=== PATIENT | female | born 1930 | race Caucasian/White ===

== ENCOUNTER 2017-01-05 18:17 | Emergency (ER) | payer OTHER ==
[~2017-01-05] VITALS: Ht 172.7 cm; Wt 61.0 kg
[~2017-01-05 18:17] MED LIST: CEFD1CAP14 PO; GFNSR600 PO; PRENTAB26 PO; TRAZ150T64 PO
[2017-01-05 18:25] VITALS: TEMP 36.5; Ht 172.7 cm; Wt 61.0 kg
[2017-01-05] MEDS ORDERED: DSY/150 PO (19:25)
[2017-01-05] MEDS ORDERED: PRENTAB26 PO (19:25)
[2017-01-05] MEDS ORDERED: OPTIRAY 320 IV PRN (19:30)
[2017-01-05] MEDS ORDERED: ZYP25 PO (20:06)
[2017-01-05] MEDS ORDERED: CHOL100027 PO (20:06)
[2017-01-05] MEDS ORDERED: MIRT30TA3 PO (20:06)
--- NOTE | 2017-01-05 20:09 | DIAGNOSTIC IMAGING REPORT ---
CT OF THE CHEST WITH IV CONTRAST CLINICAL HISTORY: Shortness of breath. Evaluate for mass. Abnormal chest radiograph at PCP. COMPARISON STUDY: Chest radiograph October 23, 2016. TECHNIQUE: Following IV administration of 91 mL of Optiray-320, helical axial images of the chest were obtained. Images were viewed in the axial, sagittal and coronal planes. IV contrast was administered without complication. CT DOSE: 300.15 mGy.cm FINDINGS: There is mild dilatation of the ascending aorta which measures 3.8 cm. There is no evidence for dissection. No enlarged thoracic lymph nodes are present. There is moderate plaque of the aortic arch. Moderate to severe emphysema is noted. No consolidation is identified to suggest pneumonia. Left lower lobe opacity represents atelectasis. There is a large lateral hernia with intrathoracic stomach. The stomach is mildly distended and fluid-filled. No pneumothorax or pleural effusion is present. Cholecystectomy clips are noted. No pulmonary emboli are identified although the segmental and subsegmental pulmonary arteries are suboptimally assessed on this exam. IMPRESSION: 1. No acute findings within the chest. 2. Large hiatal hernia with intrathoracic stomach. The stomach is mildly dilated and fluid-filled. The findings are not highly concerning but correlation with obstructive symptoms is recommended. No gastric wall thickening. 3. Moderate to severe emphysema. No consolidation to suggest pneumonia. Left lower lobe atelectasis. 4. Mild dilatation of the thoracic aorta. No dissection. Electronically signed by: Sharan Carlisle M.D. 01/05/2017 8:07 PM Dictated Date/Time: 01/05/2017 7:53 PM
[2017-01-05 20:41] VITALS: BP 145/70; PULSE 109; O2SAT 92
--- NOTE | 2017-01-06 00:44 | EMERGENCY ROOM VISIT NOTE ---
History Report prepared by Yasmin: Jewell Rodriguez Under the Supervision of: Dr. Andrew Vázquez M.D. First contact with patient: 18:47 Chief Complaint: SHORTNESS OF BREATH Stated Complaint: HX OF SHORTNESS OF BREATH - WANTS CT SCAN Nursing Triage Summary: Pt presents ambulatory to triage with daughter. Daughter reports pt had PCP appt today, mentioned that pt had trouble breathing a couple weeks ago when she had cold sx. Did an x-ray. Pt sent here for CT for ? fluid. Pt denies sob at present. Pt states, "I feel fine." History of Present Illness The patient is an 86 year old female who presents to the Emergency Room with complaints of abnormal x-ray findings that were done today. Per the patient's daughter, the patient had a regular check-up today with her PCP. She states that while there, she brought up how the patient recently had a cough, cold, and shortness of breath several weeks ago. The patient's daughter notes that the patient's recent illness prompted the patient's PCP to order an x-ray. She states that the patient's PCP noticed abnormalities and wanted the patient to have a CT scan. The patient's daughter states that the patient was instructed to come to the emergency department for a CT scan and for further evaluation. The patient denies any current shortness of breath, cough, fever, chest pain, vomiting, diarrhea, or leg swelling. The patient's daughter notes that the patient's blood pressure and heart rate both increased after interacting with her PCP. Source of History: patient, family (daughter) Onset: today Position: other (global) Quality: other (abnormal x-ray findings) Associated Symptoms: No SOB, No abdominal pain, No chest pain, No cough, No diarrhea, No fevers, No vomiting Review of Systems See HPI for pertinent positives & negatives. A total of 10 systems reviewed and were otherwise negative. Past Medical & Surgical Medical Problems: (1) No pertinent past medical history (2) SOB (shortness of breath) Surgical Problems: (1) Hx of cholecystectomy Family History FH: hypertension Heart disease Social History Smoking Status: Former Smoker Alcohol Use: none Marital Status: Housing Status: lives alone Occupation Status: retired Current/Historical Medications Scheduled Cholecalciferol (Vitamin D 1000 Unit), 1,000 INTER.UNIT PO DAILY Mirtazapine (Remeron), 30 MG PO HS Multivit/Min/Iron/Fol Ac/Pren ( Vitamin), 1 TAB PO DAILY Olanzapine (Olanzapine), 2.5 MG PO DAILY Trazodone HCl (Trazodone HCl), 150 MG PO HS Allergies Coded Allergies: Corticosteroids (Verified Adverse Reaction, Mild, 0, 07/31/16) behavioral changes as per daughter Lorazepam (Verified Adverse Reaction, Mild, 0, 10/23/16) confusion Physical Exam Vital Signs Date Time Temp Pulse Resp B/P Pulse Ox O2 Delivery O2 Flow Rate FiO2 01/05/17 20:41 109 18 145/70 92 01/05/17 18:25 36.5 98 16 114/71 91 Room Air Physical Exam Constitutional: Vital signs reviewed. Eyes: Pupils are equal round reactive to light. Conjunctiva are noninjected. ENT: Pharynx is clear without erythema or exudate. Mucous membranes are moist. Neck supple without meningeal signs. Respiratory: Clear to auscultation bilaterally. Breath sounds are equal bilaterally. Cardiovascular: Regular rate and rhythm. No rubs or gallops. GI: Soft, nondistended and nontender. Bowel sounds are present. Musculoskeletal: No peripheral edema. No lower extremity tenderness. Integumentary: No cyanosis. Neurological: The patient is awake and alert. No focal deficits. Psychiatric: Normal affect. Medical Decision & Procedures ER Provider Diagnostic Interpretation: CT results as stated below per my review and radiologist interpretation. CT OF THE CHEST WITH IV CONTRAST CLINICAL HISTORY: Shortness of breath. Evaluate for mass. Abnormal chest radiograph at PCP. COMPARISON STUDY: Chest radiograph October 23, 2016. TECHNIQUE: Following IV administration of 91 mL of Optiray-320, helical axial images of the chest were obtained. Images were viewed in the axial, sagittal and coronal planes. IV contrast was administered without complication. CT DOSE: 300.15 mGy.cm FINDINGS: There is mild dilatation of the ascending aorta which measures 3.8 cm. There is no evidence for dissection. No enlarged thoracic lymph nodes are present. There is moderate plaque of the aortic arch. Moderate to severe emphysema is noted. No consolidation is identified to suggest pneumonia. Left lower lobe opacity represents atelectasis. There is a large lateral hernia with intrathoracic stomach. The stomach is mildly distended and fluid-filled. No pneumothorax or pleural effusion is present. Cholecystectomy clips are noted. No pulmonary emboli are identified although the segmental and subsegmental pulmonary arteries are suboptimally assessed on this exam. IMPRESSION: 1. No acute findings within the chest. 2. Large hiatal hernia with intrathoracic stomach. The stomach is mildly dilated and fluid-filled. The findings are not highly concerning but correlation with obstructive symptoms is recommended. No gastric wall thickening. 3. Moderate to severe emphysema. No consolidation to suggest pneumonia. Left lower lobe atelectasis. 4. Mild dilatation of the thoracic aorta. No dissection. Electronically signed by: Sharan Carlisle M.D. 01/05/2017 8:07 PM Dictated Date/Time: 01/05/2017 7:53 PM Laboratory Results Test 01/05/17 19:35 Bedside Troponin I 0.000 ng/ml (0-0.045) Laboratory results as reviewed by me. ECG Indication: SOB/dyspnea (previous) Rate (beats per minute): 96 Rhythm: sinus rhythm Findings: T-wave inversion (in high lateral leads), other (LVH) Comparison ECG Date: 07/31/2016 Change: no significant change Change: EKG Change: When compared to EKG done 07/2016, there is no change, hypertrophy noted on that EKG as well. ED Course 1848: The patient was evaluated in room C7. A complete history and physical exam was performed. 1913: I had a long discussion with the patient and her daughter regarding the reason the patient was sent here according to the notes on [facility]. The patient had concerning chest x-ray findings and EKG that looked different from 07/2106. The Chest x-ray finding was consistent with a hiatal hernia that was also present on two prior x-rays from last year. The family agreed to a repeat EKG at this time, but does not wish to have blood work. 1925: I talked to the patient and daughter again. They are in agreement to have a CT scan to rule out lung cancer. 2023: I discussed the CT findings with the patient and I discussed the treatment plan. She verbalized complete understanding and agreement. She is ready to go home. Medical Decision This is an 86-year-old female sent here by her PCP for evaluation of abnormal x- ray and EKG findings. I did perform a limited focused review of portions of the patient's old chart on the electronic medical record. The patient has had no recent pertinent visits to this hospital. I did evaluate the patient as noted above. I did obtain history from the patient as well as her daughter. The patient is completely asymptomatic at this point. She was at her doctor for a routine checkup and mentioned that she had cold symptoms recently and was having some shortness breath at that time but not currently. Her doctor did a chest x-ray which showed a structure in the left hemithorax. Her twelve-lead EKG also appeared abnormal to her PCP. I did review the chest x-ray which showed a large hiatal hernia on the left side consistent with her to prior chest x-rays done here. IV access was established. I did order and personally review the patient's 12-lead EKG as described above. The patient has a left bundle branch block and hypertrophy which was present on her previous EKG from July 31. A prior echocardiogram at that time also showed some concentric LVH. I did order and review the patient's troponin here which was negative. After a long discussion with the patient and her daughter they decided that they would go ahead and have a CT scan done as they were concerned about the possibility of lung cancer. I did order a CT of the chest. I did review the images myself as well as the radiology report as described above. This confirmed a hiatal hernia. There is no evidence of tumor. She did have some incidental findings which I discussed with her and her daughter. The patient was discharged in good condition. She will follow up with her doctor for further care. Impression Primary Impression: Hiatal hernia Additional Impression: Abnormal EKG Scribe Attestation The scribe's documentation has been prepared under my direct and personally reviewed by me in its entirety. I confirm that the note above accurately reflects all work, treatment, procedures, and medical decision making performed by me. Departure Information Dispostion Home / Self-Care Referrals Sofi Taylor M.D. (PCP) Forms HOME CARE DOCUMENTATION FORM, IMPORTANT VISIT INFORMATION Patient Instructions Hiatal Hernia, My [facility] Additional Instructions You have been examined and treated today on an emergency basis only. This is not a substitute for, or an effort to provide, complete comprehensive medical care. It is impossible to recognize and treat all injuries or illnesses in a single emergency department visit. It is therefore important that you follow up closely with your physician. Return for worsening symptoms or if you develop fever, vomiting, abdominal pain, chest discomfort, shortness of breath or any other concerning symptoms. Problem Qualifiers
== END 2017-01-05 20:40 | disposition home or self-care (01) ==
LOC: C.EDB 18:19 → C.EDC 20:40
DX: K44.9 Diaphragmatic hernia without obstruction or gangrene (principal); R94.31 Abnormal electrocardiogram [ECG] [EKG]; Z90.49 Acquired absence of other specified parts of digestive tract; Z87.891 Personal history of nicotine dependence